=== PATIENT | male | born 1995 | race Caucasian/White ===

== ENCOUNTER → 2018-01-25 16:29 | Outpatient (CLI) | payer BC, SELFPAY ==
--- NOTE | 2018-01-25 16:35 | RAD_ITS ---
STUDY: X-RAY - LUMBAR SPINE REASON FOR EXAM: Male, 22 years old. Low back pain for one year. TECHNIQUE: AP and lateral view(s) of the lumbar spine were obtained. COMPARISON: None FINDINGS: There is straightening of the normal lumbar lordosis. There is no substantial scoliosis. There is a normal alignment of the vertebrae. Normal vertebral bodies and endplates. Normal disc space heights. There is no demonstrated fracture. The soft tissue structures are unremarkable. RAD/Lumbar Spine 2 or 3 Views IMPRESSION: Normal x-ray examination of the lumbar spine. Electronically Signed: Norah Ware MD at 9:12 EDT , Service support ,
== END ==
PROVIDERS: PCP Physician Assistant; Visit Provider Anesthesiology Pain Medicine
DX: M54.5 Low back pain (principal)
CPT/HCPCS: 72100

== ENCOUNTER → 2018-02-25 15:40 | Outpatient (CLI) | payer BC, SELFPAY ==
--- NOTE | 2018-02-25 15:40 | DT_ITS ---
This patient was seen during an EMR downtime February 18, 2018 - February 25, 2018. This patient may have a combination of paper and electronic documentation or all paper documentation. All documentation is viewable within the e-chart portion of [facility] for each patient visit.
--- NOTE | 2018-02-25 15:53 | MRI_ITS ---
STUDY: MRI LUMBAR SPINE WITHOUT CONTRAST REASON FOR EXAM: Male, 22 years old. Back pain radiating down the left leg posteriorly. TECHNIQUE: Standardized fat and water weighted pulse sequences were obtained in the sagittal and axial planes. COMPARISON: None FINDINGS: T12-L1: Normal endplates. Normal disc height, hydration and morphology. Normal bilateral facet joints. Normal central canal and bilateral lateral recesses. Normal bilateral intervertebral neural foramina. Normal lumbar lordosis. There is no substantial scoliosis. Normal conus medullaris that terminates at the L1 level. L1-2: Normal endplates. Normal disc height, hydration and morphology. Normal bilateral facet joints. Normal central canal and bilateral lateral recesses. Normal bilateral intervertebral neural foramina. L2-3: Normal endplates. Normal disc height, hydration and morphology. Normal bilateral facet joints. Normal central canal and bilateral lateral recesses. Normal bilateral intervertebral neural foramina. L3-4: Normal endplates. Normal disc height, hydration and morphology. Normal bilateral facet joints. Normal central canal and bilateral lateral recesses. Normal bilateral intervertebral neural foramina. L4-5: Normal endplates. Normal disc height, hydration and morphology. Normal bilateral facet joints. Normal central canal and bilateral lateral recesses. Normal bilateral intervertebral neural foramina. L5-S1: Minimal broad-based disc bulge at this level is present with no significant spinal canal narrowing or foraminal narrowing. Normal visualized sacral ala. Normal visualized paraspinous soft tissue structures. MRI/Spine Lumbar (Routine) IMPRESSION: No evidence of significant foraminal narrowing, spinal canal narrowing or degenerative change. Electronically Signed: Ganesh Cornelius DO at 20:44 EDT , Service support ,
== END ==
PROVIDERS: Family Provider Physician Assistant; PCP Physician Assistant; Visit Provider Anesthesiology Pain Medicine
DX: M54.9 Dorsalgia, unspecified (principal); M79.605 Pain in left leg
CPT/HCPCS: 72148

== ENCOUNTER 2018-04-09 17:00 | Outpatient (RCR) | payer BC, SELFPAY ==
--- NOTE | 2018-03-07 17:47 | HP.PTEVAL_ITS ---
Patient's Visit Information TOM VELAZQUEZ III is a 22 year old M referred to Physical Therapy by Kristel Martini with a diagnosis of LBP, leg pain. Date of Evaluation: 03/07/18 Physical Therapist: Aleksandar Beckford DPT, [place] - Visit Plan Frequency: 2x /Week Duration: 4-6 Weeks Plan: 2x/week for 4-6 as needed for. 1. Sylvia based LB ext exercises and progression of forces to ext mobs as needed L5-S1. 2. postural and body mechanics focus and DLS. 3. ES and ice as needed. - Subjective Subjective: LBP and starting down left leg feeling like a butt cramp. Today is a bad day. Been hurting for over a year and had been seeing the chiropractor. Not sure how it started. 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 Worse after work and first thing in the am. Sleeps is difficult to fall asleep. 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 Missed work when it first started last year as leg was giving out. Hitting bumps on way into work hurts. Intermittent numbness L leg down into ankle. No pattern. Happens infrequently. Dresses and basic ADLs are hard in morning but able. Work is his hobby 60+ hours per week. Enjoys kayaking and can do it but it hurts. - Pain L LBP Pain Intensity (Out of 10): 1 Pain Intensity Range: 1, 9 - Objective reflexes patella adn achilles 2/3. Sensation LE WNL to gross light touch. Strength LE 5/5. - slump and - SLR. Walks and transfers I. LB AROM min limited with L LB pain ext. SB mod limited without pain. Flexion full and painful. Posture is flat lordosis in L/S and rounded hunched over posture. Tends to hunch very quickly. + L/S compression L. repeated ext: improves ROM, no change to pain today which is not bad. - Goals Goal 1:: Pain 1/10 at worst and only in back reporting a 90% improvement. Goal Time Frame: 4-6 Weeks Goal 2:: Sleep through the night without pain and aarise in am easily. Goal Time Frame: 4-6 Weeks Goal 3:: Work without increased pain Goal Time Frame: 4-6 Weeks - Rehabilitation Potential Physical Therapy Diagnosis: Likely discal derangement Rehabilitation Potential: Good - Anticipated Interventions Patient/Client Instruction: Educate patient on: Plan of Care For the Purpose of:: To decrease pain, To increase ROM Therapeutic Exercise to Include: Strength training, Passive ROM, Active ROM, Dynamic Lumbar Stabilization, Sylvia Exercises For the Purpose of:: To decrease pain, To increase ROM, To improve ability of physical actions for home/community/work/leisure, To improve gait and locomotor functions Manual Therapy Techniques to Include: Mobilization For the Purpose of:: To increase ROM TENS: Yes Cryotherapy (ice pack, ice massage): Yes For the Purpose of:: To decrease pain Thank you for the opportunity to evaluate your patient. For Medicare and Medicare HMO plans, please review the plan of care and approve it. It will need to be FAXED BACK to us at [phone] for Medicare purposes. Please let me know if there are questions or concerns regarding this plan of care. Physician Signature: Date:
--- NOTE | 2018-04-09 18:02 | HP.PTDCSUM ---
HP - PT D/C Summary It has been my pleasure to treat TOM VELAZQUEZ III under orders from Kristel Martini, for the diagnosis of LBP, leg pain for a total of 7 visit(s). Discharge Date: 04/09/18 Please see the following information for a summary of their discharge status. - Subjective Subjective: LBP better at times but worse at times also. No pattern noted. Doing ex at work alot whcih helps but not at home. Pain is middle LB and into L hip at times. L leg feels numb and tingly at times. No f/u with [facility]. Not seen orthopedic doctor. Injecrtion did not help. - Pain L LBP Pain Intensity (Out of 10): 8 - Overall Improvement % Improvement: 35 - Objective Objective/Function: Ext adn SB are full with increased pain central LB, flexion is slow but full. Patients posture is good. and is up much taller. PROGRESSING OBJECTIVELY BUT NOT WITH SUBJECTIVE PAIN COMPLAINTS EXPECTED. - Goals Goal 1:: Pain 1/10 at worst and only in back reporting a 90% improvement. Goal Progress: SLOW Goal 2:: Sleep through the night without pain and aarise in am easily. Goal Progress: Progressing Goal 3:: Work without increased pain Goal Progress: ARDUAOUSLY SLOW - Plan Plan: D/C, PT TO CONTACT DOCTOR ABOUT OTHER OPTIONS, IF NO OTHER OPTIONS, WOULD RECOMMEND CONTINUED PT. - D/C Information Discharge Comments: pT TO DOCTOR FOR OTHER MEDICAL OPTIONS. RECOMMEND RETURN TO PT OF NO OTHER OPTIONS. If there are questions or concerns regarding this patient's physical therapy, please feel free to call me at [phone]. Thank you for the referral of this patient. Sincerely, Aleksandar Beckford, DPT, OC
== END 2018-04-09 19:00 | disposition home or self-care (01) ==
LOC: PT 17:00
PROVIDERS: Family Provider Physician Assistant; PCP Physician Assistant; Visit Provider Anesthesiology Pain Medicine
DX: M54.9 Dorsalgia, unspecified (principal); M79.606 Pain in leg, unspecified
CPT/HCPCS: 97110; 97140; 97162; 97530